=== PATIENT | female | born 1960 | race Caucasian/White ===

== ENCOUNTER → 2023-10-12 06:26 | Day surgery (SDC) | payer OTHER, SELFPAY | LOC: GI 06:26 | PROVIDERS: ATTENDING PHYSICIAN Internal Medicine | DX: Z12.11 Encounter for screening for malignant neoplasm of colon (principal); Z86.010 Personal history of colon polyps; K57.30 Diverticulosis of large intestine without perforation or abscess without bleeding; D12.2 Benign neoplasm of ascending colon; R10.13 Epigastric pain; K44.9 Diaphragmatic hernia without obstruction or gangrene; K31.7 Polyp of stomach and duodenum; K21.00 Gastro-esophageal reflux disease with esophagitis, without bleeding; K29.50 Unspecified chronic gastritis without bleeding; K63.5 Polyp of colon | CPT/HCPCS: 45385; 45381; 43239; 88305; 88342 ==

== ENCOUNTER → 2024-02-13 06:31 | Day surgery (SDC) | payer OTHER, SELFPAY | LOC: GI 06:31 | PROVIDERS: ATTENDING PHYSICIAN Internal Medicine; FAMILY PHYSICIAN Physician Assistant | DX: Z12.11 Encounter for screening for malignant neoplasm of colon (principal); K64.9 Unspecified hemorrhoids; Z86.010 Personal history of colon polyps; K57.30 Diverticulosis of large intestine without perforation or abscess without bleeding; D12.0 Benign neoplasm of cecum; D12.2 Benign neoplasm of ascending colon; D12.3 Benign neoplasm of transverse colon | CPT/HCPCS: 45385; 45380; 88305 ==

== ENCOUNTER → 2024-11-06 14:36 | Outpatient (REF) | payer MEDICARE, OTHER, SELFPAY | LOC: WDC 14:36 | PROVIDERS: ATTENDING PHYSICIAN Physician Assistant | DX: Z12.31 Encounter for screening mammogram for malignant neoplasm of breast (principal) | CPT/HCPCS: 77063; 77067 ==

== ENCOUNTER → 2024-11-22 09:36 | Outpatient (REF) | payer MEDICARE, OTHER, SELFPAY | LOC: WDC 09:36 | PROVIDERS: ATTENDING PHYSICIAN Physician Assistant | DX: R92.8 Other abnormal and inconclusive findings on diagnostic imaging of breast (principal) | CPT/HCPCS: 76642 ==

== ENCOUNTER → 2025-01-02 12:40 | Outpatient (REF) | payer MEDICARE, OTHER, SELFPAY | LOC: RAD 12:40 | PROVIDERS: ATTENDING PHYSICIAN Physician Assistant | DX: R20.9 Unspecified disturbances of skin sensation (principal); M79.671 Pain in right foot; M79.672 Pain in left foot; I75.023 Atheroembolism of bilateral lower extremities; R07.89 Other chest pain | CPT/HCPCS: 71046; 93922; 93925 ==

== ENCOUNTER → 2025-05-01 10:37 | Outpatient (REF) | payer MEDICARE, OTHER, SELFPAY | LOC: DHSLP 10:37 | PROVIDERS: ATTENDING PHYSICIAN Physician Assistant | DX: G47.33 Obstructive sleep apnea (adult) (pediatric) (principal) | CPT/HCPCS: 95800 ==